=== PATIENT | male | born 1980 | race African-American/Black ===

== ENCOUNTER 2020-10-20 16:37 | Emergency (ER) | payer OTHER ==
[~2020-10-20] VITALS: Ht 170.2 cm; Wt 99.3 kg
[2020-10-20 17:35] VITALS: BP 190/80; TEMP 99.1
== END 2020-10-20 17:35 | disposition home or self-care (01) ==
LOC: ED 16:37
DX: S05.02XA Injury of conjunctiva and corneal abrasion without foreign body, left eye, initial encounter (principal); W20.8XXA Other cause of strike by thrown, projected or falling object, initial encounter; Y92.89 Other specified places as the place of occurrence of the external cause
CPT/HCPCS: 99283